=== PATIENT | female | born 1965 | race Two or more races ===

== ENCOUNTER 2024-08-04 22:38 | Emergency (ER) | payer OTHER ==
[~2024-08-04] VITALS: Ht 177.8 cm; Wt 113.4 kg
[2024-08-04] MEDS ORDERED: MOBIC7.5 MG (22:49)
[2024-08-04] MEDS ORDERED: NIFEDIPINE20 MG (22:49)
[2024-08-04] MEDS ORDERED: JARDIANCE10 MG PO (22:50)
[2024-08-04] MEDS ORDERED: GUAIFENESIN 200 MG/10 ML BLIST.PACK PO ONE (23:30)
[2024-08-04] MEDS ORDERED: ACETAMINOPHEN 500 MG GEL..CAP PO ONE (23:30)
[2024-08-05 01:06] LABS: BASO % 0.6 % (0.1-1.2); HEMATOCRIT 41.9 % (34.1-44.9); HEMOGLOBIN 13.8 g/dL (11.2-15.7); LYMPH # 1.14 (1.18-3.74); LYMPH % 24.3 % (19.3-53.1); MEAN CORPUSCULAR HEMOGLOBIN 26.4 pg (25.6-32.2); MONO % 8.5 % (4.7-12.5); NEUT # 3.11 (1.56-6.13); NEUT % 66.4 % (34.0-71.1); PLATELET COUNT 133 K/uL (163-369); RED BLOOD COUNT 5.22 M/uL (3.93-5.22); RED CELL DISTRIBUTION WIDTH 12.5 % (11.6-14.4)
[2024-08-05] MEDS ORDERED: TRAMADOL HCL 50 MG TABLET PO STA (01:36)
[2024-08-05 01:52] LABS: INFLUENZA A AG NEGATIVE (NEGATIVE)
[2024-08-05 02:37] LABS: COVID-19 AG NEGATIVE (NEGATIVE)
== END 2024-08-05 02:48 | disposition home or self-care (01) ==
LOC: ER 23:22
PROVIDERS: General Practice
DX: B34.9 Viral infection, unspecified (principal); R05.8 Other specified cough; Z20.822 Contact with and (suspected) exposure to COVID-19; I10 Essential (primary) hypertension; E11.9 Type 2 diabetes mellitus without complications